=== PATIENT | female | born 2000 | race Caucasian/White ===

== ENCOUNTER 2025-06-29 01:40 | Outpatient (CLI) | payer MEDICARE, BC, SELFPAY ==
[2025-06-29] MEDS: LACTATED RINGERS 1000 ML 1,000 ML IV (02:15)
[2025-06-29 02:51] VITALS: PULSE 106; O2SAT 97
[2025-06-29 02:52] VITALS: BP 123/79; PULSE 105; RESP 20; TEMP 36.8; O2SAT 97
[2025-06-29 03:09] LABS: Amnisure Rom* Negative; Trichomonas No Trichomonas Seen (None Seen)
--- NOTE | 2025-06-29 03:25 | W.PM.OBTRAN ---
History of Present Illness History of Present Illness Date Seen: 06/29/25 History of Present Illness: 24 year old at 29w6d weeks gestation by first trimester US, MAGDA 09/08/25, presents with contractions. Contractions started around 0300 on 06/28/25 and have been increasing in frequency and intensity over the last 24 hours. Patient denies vaginal bleeding or LOF. Patient denies changes in vaginal discharge or dysuria. course notable for: - short cervix: on vaginal progesterone 200 mg QHS without improvement, Jim[place]nez cerclage placed on 05/04/[address] Salgado with [facility]. - Epilepsy with hx of grand mal seizures. On Keppra. - cognitive and expressive language disorder; vulnerable adult report on 02/25 due to cognitive impairment - iron deficiency Baby moving naturally: Yes Bleeding: No Contractions: Yes Leaking fluid: No Meds Home Medications and Allergies Home Medications ?Medication ?Instructions ?Recorded ?Confirmed ?Type atomoxetine 40 mg capsule 40 mg PO BID 06/29/25 06/29/25 History Held on 06/29/25. Instructions: Not taking levetiracetam 750 mg tablet 750 mg PO BID 06/29/25 06/29/25 History vit no.95-ferrous 1 tab PO DAILY 06/29/25 06/29/25 History fumarate 28 mg-folic acid 800 mcg tablet () progesterone micronized 200 mg 200 mg PO QPM 06/29/25 06/29/25 History capsule Allergies Allergy/AdvReac Type Severity Reaction Status Date / Time No Known Drug Allergies Allergy Verified 06/29/25 01:48 [facility] Social History Smoking Status: Never smoker History History 1 Elective abortions Para 0 Spontaneous abortions Hx # Term Pregnancies Ectopic pregnancies Hx # Pregnancies Multiple births Number of Living Children 0 OB - H&P: Exam Physical Exam Vital signs: Temp Resp BP Pulse Ox 98.3 F 20 123/79 97 06/29/25 02:52 06/29/25 02:52 06/29/25 02:52 06/29/25 02:52 Narrative: Gen: alert, appears uncomfortable during contractions CV: extremities warm and well perfused Resp: breathing comfortably on RA Abd: gravid : sterile speculum exam reveals watery, cloudy vaginal discharge. Cerclage visually intact. FHT: Baseline: 145 bpm Accelerations: present Decelerations: absent Variability: moderate [place]itar: ctx every 2 minutes Results Labs Laboratory Tests 06/29/25 Range/Units 02:57 Membrane Rupture Negative Vaginal Trichomonas No Trichomonas Seen (None Seen) Vaginal Yeast Yeast Seen A (None Seen) Vaginal Clue Cells No Clue Cells Seen (None Seen) Assessment and Plan Assessment and plan (1) contractions: Status: Acute (2) Short cervical length during : Status: Acute (3) Cervical cerclage suture present: Status: Acute (4) Seizure disorder: Status: Acute Plan Given vaginal fluid noted, Amnisure collected, which was negative. Called [facility] on-call provider, Dr. Majo Garcia to discuss case. Recommendations as follows: - digital exam to assess cerclage. Personally performed and cerclage palpates intact, however cervix does feel think (approx 1 cm or less). - PO nifedipine IR 20 mg - infectious testing: GCC, UA, wet prep obtained. Results notable for + yeast. Treatment has not yet been initiated at time of transfer. - plan for transfer to [place]. Pt is s/p IV fluid bolus (1 L LR) without significant change in contraction intensity or frequency. EMS en route. Total time spent Total time spent: 90 minutes spent reviewing chart, evaluating patient, and coordinating care on day of encounter.
[2025-06-29 03:49] VITALS: BP 134/82; PULSE 111; RESP 18; TEMP 37.3; O2SAT 97
[2025-06-29 03:50] VITALS: BP 134/82; PULSE 114; PULSE 120; O2SAT 97
--- NOTE | 2025-06-29 04:31 | PC.OBNST ---
NST Note NST Note Start: 06/29/25 01:46 Freq: ONCE Status: Active Protocol: Document 06/29/25 03:56 SHERRY (Rec: 06/29/25 04:31 SHERRY No Response) NST Note 1 Para (# of births) 0 EDC 09/08/25 Gestational Age In 29 Weeks & 6 Days Weeks & Days Patient Presented Contractions/cramping with Complaint(s) of Other Complaints Pt has a cerclage in place Reactive Yes Appropriate for Yes Gestational Age BRAEDEN [place], RNC Date 06/29/25 Reactive Yes Appropriate for Yes Gestational Age BRAEDEN Farley, RNC Date 06/29/25 OB NST charge Yes Complete NST Note Yes via Write Note The provider's electronic signature indicates the NST is reactive/appropriate for gestational age. *Note to provider: If an addendum is required, open the patient's chart and click on the note under the Nurse/Allied Health tab.
[2025-06-29 05:01] LABS: Chlamydia DNA Amplified* NOT DETECTED (No Detected); GC DNA Amplified* NOT DETECTED (No Detected)
[2025-06-29 23:07] LABS: Strep B DNA Probe Negative (Negative)
[2025-06-30 07:15] LABS: Strep B Susceptibility Needed? No
== END 2025-06-29 04:05 | disposition home or self-care (01) ==
LOC: OB OUT 01:41 → OB 01:41
PROVIDERS: Visit Provider Family Medicine
DX: O47.03 False labor before 37 completed weeks of gestation, third trimester (principal); Z3A.29 29 weeks gestation of pregnancy
CPT/HCPCS: 59025; 81003; 84112; 87081; 87210; 87491; 87591; 87653; 99199; G0463; A9270; J7120

== ENCOUNTER 2025-06-29 03:48 | Outpatient (CLI) | payer MEDICARE, BC, SELFPAY | END 2025-06-29 03:49 | disposition home or self-care (01) | LOC: AMB 07-11 18:06 | PROVIDERS: Visit Provider Emergency Medicine | DX: O47.03 False labor before 37 completed weeks of gestation, third trimester (principal); Z3A.29 29 weeks gestation of pregnancy | CPT/HCPCS: A0425; A0427 ==